=== PATIENT | female | born 1995 | race American Indian/Alaskan Native ===

== ENCOUNTER 2016-10-02 00:07 | Emergency (ER) | payer SELFPAY ==
--- NOTE | 2016-10-02 02:35 | Emergency Department Report ---
HPI - General Chief Complaint: Urogenital-Female Time Seen by Provider: 10/02/16 02:14 - HPI HPI: Patient is a 20-year-old female presents to ED complaining of vaginal itching 3 days. Patient states she is confined to the insides and outside of the vagina. Patient states she does not recall vaginal discharge but thinks she may have some. Patient admits mild odor. She denies vaginal bleeding, pain with urination, nausea, vomiting , abdominal pain ED Past Medical Hx - Past Medical History Previous Medical History?: No - Surgical History Past Surgical History?: No - Social History Smoking Status: Never Smoker Substance Use Type: Alcohol - Medications Home Medications: Home Medications Medication Instructions Recorded Confirmed Last Taken Type Fluconazole [Diflucan TAB] 150 mg PO ONCE #1 tablet 10/02/16 Unknown Rx metroNIDAZOLE [Flagyl TAB] 500 mg PO Q12HR #14 tab 10/02/16 Unknown Rx ED Review of Systems ROS: Stated complaint: VAGINAL ITCHING Other details as noted in HPI Constitutional: denies: chills, fever Eyes: denies: eye pain, eye discharge, vision change ENT: denies: ear pain, throat pain Respiratory: denies: cough, shortness of breath, wheezing Cardiovascular: denies: chest pain, palpitations Endocrine: no symptoms reported Gastrointestinal: denies: abdominal pain, nausea, diarrhea Genitourinary: denies: urgency, dysuria, discharge Musculoskeletal: denies: back pain, joint swelling, arthralgia Skin: denies: rash, lesions Neurological: denies: headache, weakness, paresthesias Psychiatric: denies: anxiety, depression Hematological/Lymphatic: denies: easy bleeding, easy bruising Physical Exam - Physical Exam Vital Signs: Vital Signs 10/02/16 01:19 Temperature 97.9 F Pulse Rate 71 Respiratory 16 Rate Blood Pressure 102/67 O2 Sat by Pulse 100 Oximetry Physical Exam: GENERAL: Alert and oriented x3, no apparent distress, Normal Gait, atraumatic. HEAD: Head is normocephalic and a-traumatic. EYES: Extra ocular muscles are intact. Pupils are equal, round, and reactive to light and accommodation. LUNGS: Symetrical with respiration, No wheezing, no rales or crackles, CTAB. HEART: S1, S2 present, regular rate and rhythm without murmur, no rubs, no gallops. Non tender to palpation ABDOMEN: No organomegaly was noted,Positive bowel sounds, soft, and non- distended. . Nontender to palpation on all Quadrants, NO CVA tenderness. GENITOURINARY: External genitalia without erythema, exudate or discharge. Vaginal vault is with moderate greenish discharge. Cervix is of normal color without lesion. Cervical os is closed. IUD strings visualized. No bleeding noted. Uterus is noted to be of normal size and nontender. No cervical motion tenderness. No masses are palpated. SKIN: Warm and dry, No lesions, No ulceration or induration present. ED Course Vital Signs 10/02/16 01:19 Temperature 97.9 F Pulse Rate 71 Respiratory 16 Rate Blood Pressure 102/67 O2 Sat by Pulse 100 Oximetry ED Medical Decision Making - Medical Decision Making 20-year-old female presents with bacterial vaginosis ED course: Urinalysis, urine test, wet prep, Chlamydia and gonorrhea cultures sent Findings suggest bacterial vaginitis with greater than 20% clue cells, no trichomoniasis, no yeast infection Discussed with patient. Discussed home medication. Discussed the follow-up with [employer]. Vital signs are normal patient is in no acute distress. Critical care attestation.: If time is entered above; I have spent that time in minutes in the direct care of this critically ill patient, excluding procedure time. ED Disposition Clinical Impression: Bacterial vaginitis Disposition: - TO HOME OR SELFCARE Is pt being admited?: No Does the pt Need Aspirin: No Condition: Stable Instructions: Bacterial Vaginosis (ED) Prescriptions: Fluconazole [Diflucan TAB] 150 mg PO ONCE #1 tablet metroNIDAZOLE [Flagyl TAB] 500 mg PO Q12HR #14 tab Referrals: CARLOS ORTIZ MD [Primary Care Provider] - 3-5 Days DEJA ATKINSON MD [Referring] - 3-5 Days [facility] [place] [Outside] - 3-5 Days Forms: STI Treatment and Prevention, Work/School Release Form(ED) Time of Disposition: 04:08
[2016-10-02 03:41] LABS: Bilirubin,Urine NEG (Negative); Blood,Urine NEG (Negative); Ketones,Urine TR mg/dL (Negative); Leukocyte Esterase,Urine NEG (Negative); Nitrite,Urine NEG (Negative); Protein,Urine <15 mg/dL mg/dL (Negative)
[2016-10-02 03:42] LABS: RBC,Urine < 1.0 /HPF (0.0-6.0); WBC,Urine < 1.0 /HPF (0.0-6.0)
[2016-10-02 04:34] VITALS: BP 119/73
== END 2016-10-02 04:34 | disposition home or self-care (01) ==
LOC: ED 00:07
DX: N76.0 Acute vaginitis (principal)
CPT/HCPCS: 81001; 81025; 87086; 87210; 87591; 99283